=== PATIENT | male | born 2000 | race Hispanic/Latino ===

== ENCOUNTER 2024-12-16 05:37 | Emergency (ER) | payer OTHER ==
[~2024-12-16] VITALS: Ht 190.5 cm; Wt 109.6 kg
[2024-12-16] MEDS ORDERED: ISOVUE-370 76% 100 ML VIAL As Ordered ONE (05:45)
[2024-12-16 06:10] LABS: PLATELET COUNT, AUTOMATED 239 10^3/uL (150-450)
[2024-12-16 06:29] LABS: BASO # 0.1 10^3/uL (0.0-0.2); BASO % 0.6 % (0.0-1.0); EOS # 0.1 10^3/uL (0.0-0.5); EOS % 1.6 % (0.0-3.0); LYMPH # 1.5 10^3/uL (1.5-5.0); LYMPH % 19.0 % (24.0-44.0); MONO # 0.4 10^3/uL (0.0-0.8); MONO % 5.5 % (2.0-8.0); NEUTROPHILS # 5.8 10^3/uL (1.5-8.5); NEUTROPHILS % 72.8 % (36.0-66.0); PLATELET COUNT, AUTOMATED 228 10^3/uL (150-450); VENOUS BASE EXCESS -3.4 (-2.0-2.0); VENOUS HCO3 22.4 MMOL/L (23.0-27.0); VENOUS O2 SATURATION 98.7 % (60.0-80.0); VENOUS PARTIAL PRESSURE CO2 42.8 mmHg (38.0-50.0); VENOUS PARTIAL PRESSURE O2 173.2 mmHg (30.0-50.0); VENOUS PH 7.336 UNITS (7.330-7.430); VENOUS STANDARD HCO3 21.7 MMOL/L; VENOUS TOTAL CO2 23.7 MMOL/L (24.0-28.0)
[2024-12-16 06:37] LABS: ETHYL ALCOHOL (ETHANOL) 0.231 % (0.000-0.010)
[2024-12-16 06:38] LABS: CPK CREATINE PHOSPHOKINASE 728 U/L (46-171)
[2024-12-16 06:39] LABS: ALT/SGPT 56 U/L (7.0-40); AST/SGOT 70 U/L (<34); CALCIUM LEVEL 8.3 MG/DL (8.5-10.1); CARBON DIOXIDE LEVEL 24 MMOL/L (20-31); CHLORIDE LEVEL 105 MMOL/L (98-107); CK-MB VALUE MASS 9.7 NG/ML (<3.6); CREATININE FOR GFR 0.93 MG/DL (0.70-1.30); GLOMERULAR FILTRATION RATE > 90.0 (>60); MB/CK RELATIVE INDEX 1.33 (< OR =4); POTASSIUM SERUM 4.0 MMOL/L (3.5-5.1); SODIUM LEVEL 142 MMOL/L (136-145)
[2024-12-16 06:41] LABS: INR 1.01
[2024-12-16 10:45] VITALS: BP 117/60; TEMP 97.9; O2SAT 97
== END 2024-12-16 11:00 | disposition home or self-care (01) ==
LOC: M ED 05:37
DX: F10.120 Alcohol abuse with intoxication, uncomplicated (principal)
CPT/HCPCS: 36415; 70450; 71260; 72125; 72128; 72131; 74177; 80047; 80048; 80076; 82077; 82150; 82550; 82553; 82803; 83605; 83690; 84484; 85025; 85027; 85610; 85730; 86850; 86900; 86901; 93005; 94760; 99285; Q9967